=== PATIENT | male | born 1970 | race Caucasian/White ===

== ENCOUNTER 2018-08-22 21:26 | Emergency (ER) | payer OTHER ==
[2018-08-22] MEDS ORDERED: Ondansetron PF 4 MG/2 ML Vial ONE ×2 (21:48→22:18)
[2018-08-22 21:49] LABS: #Basophils 0.1 thou/uL (0.0-0.2); #Lymphocytes 0.7 thou/uL (1.20-3.40); #Monocytes 1.3 thou/uL (0.11-0.59); #Neutrophils 12.9 thou/uL (1.40-6.50); %Basophils 0.6 % (0.0-1.0); %Lymphocytes 4.7 % (21.0-51.0); %Monocytes 8.8 % (0.0-10.0); %Neutrophils 85.9 % (42.0-75.0); Hemoglobin 15.4 g/dL (14.0-18.0); Mean Corpuscular HGB CONC 33.9 g/dL (32.0-36.0); Mean Corpuscular Hemoglobin 32.1 pg (27.0-31.0); Mean Corpuscular Volume 94.8 fL (78.0-98.0); Mean Platelet Volume 6.9 fL (7.4-10.4); Platelet Count 304 thou/uL (130-400); RBC Distribution Width 11.5 % (11.5-14.5); Red Blood Cell (RBC) Count 4.78 mill/uL (4.70-6.10)
[2018-08-22 22:00] LABS: ALT (SGPT) 62 U/L (8-55); AST (SGOT) 59 U/L (5-34); Albumin 4.8 g/dL (3.5-5.0); Alkaline Phosphatase 99 U/L (40-150); Anion Gap 23 mmol/L (10-20); BUN (Urea Nitrogen) 10 mg/dL (8.9-20.6); Bilirubin, Total 0.7 mg/dL (0.2-1.2); Calc. Creatinine Clearance 0 mL/min (70-130); Calcium 9.7 mg/dL (7.8-10.44); Carbon Dioxide 18 mmol/L (22-29); Chloride 85 mmol/L (98-107); Estimated GFR-MDRD 67; Globulin 3.9 g/dL (2.4-3.5); Glucose 152 mg/dL (70-105); Potassium 3.6 mmol/L (3.5-5.1); Protein, Total 8.7 g/dL (6.0-8.3); Sodium 122 mmol/L (136-145)
[2018-08-22] MEDS ORDERED: Sodium Chloride 0.9% 2,000 ML ONE (22:09)
--- NOTE | 2018-08-22 22:37 | CT ---
CT BRAIN WITHOUT CONTRAST: HISTORY:Dizziness, altered mental status COMPARISON:None FINDINGS: No evidence of acute infarct, hemorrhage, midline shift or abnormal extra-axial fluid collections is seen. The ventricular size is appropriate and the basilar cisterns are patent. The bony calvarium is intact. The visualized paranasal sinuses and mastoid air cells are well aerated. IMPRESSION: No CT evidence of acute intracranial process.
--- NOTE | 2018-08-22 22:43 | RAD ---
CHEST ONE VIEW AND ABDOMEN 2 VIEWS: HISTORY: Nausea, vomiting, dizziness, altered mental status FINDINGS: The heart size is normal. The lungs are clear. No free air or differential air-fluid levels are seen in the abdomen. The bowel gas pattern is unrema rkable. No suspicious calcifications are noted.
[2018-08-22 23:28] LABS: Bilirubin Negative (Negative); Blood, Urine Negative (Negative); Clarity Clear (Clear); Glucose, Urine (Dipstick) 100 mg/dL (Negative); Leukocyte Negative (Negative); Nitrite Negative (Negative); Protein, Urine (Dipstick) 30 mg/dL (Neg-Trace); Urobilinogen 0.2 mg/dL (0.2-1.0)
[2018-08-22] MEDS ORDERED: Sodium Chloride 0.9% 1,000 ML ONE (23:29)
[2018-08-22 23:32] LABS: Bacteria/HPF None Seen HPF (None Seen); RBC/HPF 0-3 HPF (0-3); Squamous Epithelial None Seen HPF (0-3); WBC/HPF None Seen HPF (0-3)
[2018-08-22] MEDS ORDERED: Lorazepam 0.5 MG TAB ONE (23:38)
[2018-08-23] MEDS ORDERED: chlordiazePOXIDE HCl 25 MG CAP ONE (00:23)
[2018-08-23 02:22] LABS: Anion Gap 16 mmol/L (10-20); BUN (Urea Nitrogen) 7 mg/dL (8.9-20.6); Calc. Creatinine Clearance 0 mL/min (70-130); Calcium 8.3 mg/dL (7.8-10.44); Carbon Dioxide 20 mmol/L (22-29); Chloride 95 mmol/L (98-107); Estimated GFR-MDRD 85; Glucose 110 mg/dL (70-105); Potassium 4.3 mmol/L (3.5-5.1); Sodium 127 mmol/L (136-145)
[2018-08-23] MEDS ORDERED: Promethazine HCl 25 MG/ML VIAL ONE (03:41)
[2018-08-23] MEDS ORDERED: Sodium Chloride 0.9% 1,000 ML ONE (06:33)
[2018-08-23 08:48] LABS: Anion Gap 14 mmol/L (10-20); BUN (Urea Nitrogen) 5 mg/dL (8.9-20.6); Calc. Creatinine Clearance 0 mL/min (70-130); Calcium 8.6 mg/dL (7.8-10.44); Carbon Dioxide 22 mmol/L (22-29); Chloride 101 mmol/L (98-107); Estimated GFR-MDRD Greater than 90; Glucose 106 mg/dL (70-105); Potassium 3.8 mmol/L (3.5-5.1); Sodium 133 mmol/L (136-145)
== END 2018-08-23 09:54 | disposition home or self-care (01) ==
LOC: NAV ERS 21:26
DX: E87.1 Hypo-osmolality and hyponatremia (principal); E78.5 Hyperlipidemia, unspecified; I10 Essential (primary) hypertension; Z87.891 Personal history of nicotine dependence; Z79.899 Other long term (current) drug therapy
CPT/HCPCS: 70450; 74022; 80048; 80053; 80307; 81003; 81015; 83690; 84484; 85025; 93005; 96361; 96365; 96375; J2405; J2550; J7050